=== PATIENT | male | born 1955 | race African-American/Black ===

== ENCOUNTER 2024-04-06 09:24 | Inpatient (IN) | payer OTHER, BC ==
[2024-04-06] MEDS ORDERED: ACETAMINOPHEN 325 MG TABLET ONE (10:01)
[2024-04-06 10:47] LABS: Absolute Lymphocytes (CBC) 0.4 K/uL (0.7-4.9); Absolute Monocytes 1.6 K/uL (0.1-1.3); Absolute Neutrophil 0.3 K/uL (1.8-8.0); Basophils % 1.8 % (0-1.3); Eosinophils % 0.4 % (0-4.4); Hematocrit 36.4 % (39.6-49.0); Lymphocytes % 18.1 % (15.3-44.8); MCH 31.1 pg (27.0-35.0); MCHC 32.9 g/dL (32.0-36.0); MCV 94.5 fL (80-100); MPV 8.1 fL (7.6-11.3); Monocytes % 66.4 % (3.3-12.3); Neutrophils % 13.3 % (41.7-73.7); Nucleated RBC Absolute Count 0.1 (0-0); Platelets 241 thou/uL (152-406); RBC Red Blood Cell Count 3.86 M/uL (4.33-5.43); Red Cell Distribution Width 18.8 % (12.1-15.2)
[2024-04-06 10:53] LABS: PT Prothrombin Time 23.4 SECONDS (9.4-12.5); PTT, Activated Partial Thromb 33.1 SECONDS (24.3-36.9); Protime INR 2.14
[2024-04-06 11:05] LABS: Specific Gravity 1.007 (1.005-1.030); Sqamous Epithelial None Seen /HPF (None Seen); Urine Bacteria None Seen /HPF (<20); Urine Bilirubin NEGATIVE (Negative); Urine Blood Negative (Negative); Urine Clarity Clear (Clear); Urine Color Colorless (Yellow); Urine Culture Reflex Order NOT NEEDED; Urine Glucose NEGATIVE (Negative); Urine Ketones NEGATIVE (Negative); Urine Microscopic Reflex YN ORDER UMIC; Urine Nitrite NEGATIVE (Negative); Urine Protein NEGATIVE (Negative); Urine RBC <5 /HPF (None Seen); Urine Urobilinogen Normal (Normal); Urine WBC <5 /HPF (<5)
[2024-04-06 11:07] LABS: AST/SGOT 16 U/L (15-37); Albumin 2.5 g/dL (3.4-5.0); Albumin/Globulin Ratio 0.5 (1.1-1.8); Alkaline Phosphatase 97 U/L (45-117); Anion Gap 8.8 mEq/L (5.0-15.0); BUN Blood Urea Nitrogen 12 mg/dL (7-18); Bicarbonate 28 mEq/L (21-32); Bilirubin Total 0.7 mg/dL (0.2-1.0); Globulin 5.4 g/dL (2.3-3.5); Glomerular Filtration Rate 75 ml/min (=/>90); Glucose Level 112 mg/dL (74-106); Potassium 3.8 mEq/L (3.5-5.1); Protein, Total 7.9 g/dL (6.4-8.2); Sodium Level 138 mEq/L (136-145)
[2024-04-06 11:08] LABS: ALT/SGPT < 14 U/L (16-61)
[2024-04-06 11:11] LABS: SARS-CoV-2 Antigen CONTROL BLUE LINE VIS/BG OK; SARS-CoV-2 Antigen Rapid Res Negative (Negative)
[2024-04-06] MEDS ORDERED: NA CHLORIDE 0.9% 500 ML ONE (11:16)
--- NOTE | 2024-04-06 11:27 | RAD REPORT ---
Procedure: Chest Single View HISTORY: Chest pain COMPARISON: October 2023 FINDINGS: 3.7 cm right lung nodule has increased in size. Development of linear interstitial opacities within the lung bases. COPD. Heart is mildly enlarged. Central venous catheter in place. No significant pleural effusion noted. The heart is normal size. IMPRESSION: Enlargement of a 3.7 cm right lung nodule Development of mild to moderate linear opacities within the lung bases probably areas of subsegmental atelectasis. Pneumonitis, atypical pneumonia or other considerations.
[2024-04-06] MEDS ORDERED: AZITHROMYCIN 500 MG INJ IVPB ONE (11:47)
[2024-04-06] MEDS ORDERED: NA CHLORIDE 0.9% 250 ML ONE (11:47)
[2024-04-06] MEDS ORDERED: CEFTRIAXONE 1000 MG/VIAL ONE (11:47)
--- NOTE | 2024-04-06 12:31 | ER ---
Nurse's Notes [facility] Name: Garland Mai Age: 69 yrs Sex: Male : 1955 Arrival Date: 04/06/2024 Time: 09:24 Bed 7 Private MD: Diagnosis: Fever, unspecified;Pneumonia, unspecified organism Presentation: 04/06 09:49 Chief complaint: Patient states: he was at the cancer center for his chemo treatment kc6 and they sent him here for a fever of 101. temp is 99.4 in triage. Coronavirus screen: At this time, the client does not indicate any symptoms associated with coronavirus-19. Ebola Screen: No symptoms or risks identified at this time. Initial Sepsis Screen: Does the patient meet any 2 criteria? HR > 90 bpm. Does the patient have a suspected source of infection? No. Patient's initial sepsis screen is negative. Risk Assessment: Do you want to hurt yourself or someone else? Patient reports no desire to harm self or others. Onset of symptoms was April 06, 2024. 09:49 Method Of Arrival: Wheelchair kc6 09:49 Acuity: RESHMA 3 kc6 Triage Assessment: 09:51 General: Appears in no apparent distress. comfortable, well groomed, well developed, kc6 Behavior is calm, cooperative, appropriate for age, Reports chills for 12-24 hours, fever for 12-24 hours, feeling ill for 12-24 hours, fatigue for 12-24 hours. Pain: Denies pain. EENT: Reports nasal congestion pain when swallowing. Neuro: Level of Consciousness is awake, alert, obeys commands, Oriented to person, place, time, situation, Appropriate for age. Cardiovascular: Capillary refill < 3 seconds. Respiratory: Reports cough that is productive, Airway is patent Trachea midline Respiratory effort is even, unlabored, Respiratory pattern is regular, symmetrical. GI: Abdomen is flat, non-distended, Patient currently denies abdominal pain, diarrhea, nausea, vomiting. : No signs and/or symptoms were reported regarding the genitourinary system. Derm: No signs and/or symptoms reported regarding the dermatologic system. Skin is intact, is healthy with good turgor, Skin is pink, warm \T\ dry. Musculoskeletal: No signs and/or symptoms reported regarding the musculoskeletal system. Circulation, motion, and sensation intact. Capillary refill < 3 seconds, Range of motion: intact in all extremities. Historical: - Allergies: 09:45 Hydrocodone-Acetaminophen; ll1 - PMHx: 09:51 Congestive heart failure; esopaheal cancer; blood clots; kc6 - PSHx: 09:51 None; kc6 - Immunization history:: Adult Immunizations up to date. - Infectious Disease History:: Denies. - Social history:: Smoking status: Patient denies any tobacco usage or history of. - Family history:: not pertinent. - Hospitalizations: : No recent hospitalization is reported. Screenin:53 [facility] ED Fall Risk Assessment (Adult) History of falling in the last 3 months, kc6 including since admission No falls in past 3 months (0 pts) Confusion or Disorientation No (0 pts) Intoxicated or Sedated No (0 pts) Impaired Gait No (0 pts) Mobility Assist Device Used Yes (1 pt) Altered Elimination No (0 pt) Score/Fall Risk Level 0 - 2 = Low Risk Oriented to surroundings. Abuse screen: Denies threats or abuse. Denies injuries from another. Nutritional screening: No deficits noted. Tuberculosis screening: No symptoms or risk factors identified. Assessment: 09:54 Reassessment: please see triage. kc6 10:54 Reassessment: Patient appears in no apparent distress at this time. No changes from kc6 previously documented assessment. Patient and/or family updated on plan of care and expected duration. Pain level reassessed. Patient is alert, oriented x 3, equal unlabored respirations, skin warm/dry/pink. 11:54 Reassessment: Patient appears in no apparent distress at this time. No changes from kc6 previously documented assessment. Patient and/or family updated on plan of care and expected duration. Pain level reassessed. Patient is alert, oriented x 3, equal unlabored respirations, skin warm/dry/pink. 12:54 Reassessment: Patient appears in no apparent distress at this time. No changes from kc6 previously documented assessment. Patient and/or family updated on plan of care and expected duration. Pain level reassessed. Patient is alert, oriented x 3, equal unlabored respirations, skin warm/dry/pink. 13:25 Reassessment: Patient appears in no apparent distress at this time. No changes from kc6 previously documented assessment. Patient and/or family updated on plan of care and expected duration. Pain level reassessed. Patient is alert, oriented x 3, equal unlabored respirations, skin warm/dry/pink. Vital Signs: 09:49 BP 110 / 70; Pulse 102; Resp 19 S; Temp 99.4(O); Pulse Ox 95% on R/A; Weight 47.63 kg kc6 (R); Height 5 ft. 11 in. (R); Pain 0/10; 10:42 BP 99 / 67; Pulse 96; Resp 16 S; Pulse Ox 96% on R/A; kc6 11:19 Temp 99.7(O); kc6 11:41 BP 90 / 62; Pulse 82; Resp 18 S; Pulse Ox 93% on R/A; kc6 12:21 BP 96 / 59; Pulse 84; Resp 17 S; Pulse Ox 96% on R/A; kc6 13:25 BP 90 / 64; Pulse 88; Resp 16 S; Pulse Ox 98% on R/A; kc6 09:49 Body Mass Index 14.64 (47.63 kg, 180.34 cm) kc6 09:49 Pain Scale: Adult kc6 ED Course: 09:27 Patient arrived in ED. mg5 09:36 Se Avila MD is Attending Physician. rn 09:41 Arm band placed on Patient placed in an exam room, on a stretcher. ll1 09:49 Catrina Alex, INDY is Primary Nurse. kc6 09:51 Triage completed. kc6 09:53 Patient has correct armband on for positive identification. Bed in low position. Call kc6 light in reach. Side rails up X 1. Adult w/ patient. Pulse ox on. NIBP on. Door closed. Noise minimized. Lights dimmed. Warm blanket given. Pillow given. 09:53 Patient maintains SpO2 saturation greater than 95% on room air. kc6 10:21 Missed attempt(s): 20 gauge in right forearm. kc6 10:38 Chest Single View XRAY In Process Unspecified. EDMS 10:42 Inserted saline lock: 22 gauge in right forearm, using aseptic technique. Blood kc6 collected. Flushed with 10 mL NS. 10:44 Diet: Patient given water. Tolerated well. kc6 10:53 Urinalysis w/ reflexes Sent. kc6 12:30 Shaka Irwin is Hospitalizing Provider. rn 13:24 [id number] CM met with and his sister Allison at the bedside in the ED exam room. ane Patient identified by name and . Demographic sheet confirmed. Patient reports that prior to admission, he typically performs ADLs independently. Approximately a week prior to admission, he had increased weakness and was using a wheelchair. No other DME in the home, no home oxygen. Patient reports he has HH services but is not sure of the name of the company. He states the HH services was set up by [facility] when he was receiving radiation treatment, and is nearly done with chemotherapy, with only two more remaining treatments. HH service reports to patient's home 3 times a week. His PCP is Dr. Sudhir Rice and he states he does not have an MPOA in place at this time. His plan is to return home upon discharge, complete chemotherapy and Allison states she will be his transportation home. CM team will continue to follow and coordinate care during this hospital stay. 14:18 No provider procedures requiring assistance completed. Patient admitted, IV remains in kc6 place. Administered Medications: 10:21 Drug: Acetaminophen PO 650 mg PO once Route: PO; kc6 11:18 Follow up: Response: No adverse reaction; Temperature is unchanged kc6 11:18 Drug: NS 0.9% IV 500 ml 500 ml IV at 1 bolus once; to be given as a bolus over 30 kc6 minutes Volume: 500 ml; Route: IV; Rate: 1 bolus; Site: right forearm; 11:56 Follow up: Response: No adverse reaction; IV Status: Completed infusion; IV Intake: kc6 500ml 11:56 Drug: Rocephin IV 1 grams IV at calculated rate once; Given slow IV push per pharmacy kc6 instructions Route: IV; Rate: calculated rate; Site: right forearm; 12:21 Follow up: Response: No adverse reaction; IV Status: Completed infusion; IV Intake: [id number] 11:57 Drug: Zithromax IVPB 500 mg IVPB once over 1 hrs; mix in 250 mL NS Route: IVPB; Infused kc6 Over: 1 hrs; Site: right forearm; 13:26 Follow up: Response: No adverse reaction; IV Status: Completed infusion; IV Intake: kc6 250ml Medication: 14:18 VIS not applicable for this client. kc6 Intake: 11:56 IV: 500ml; Total: 500ml. kc6 12:21 IV: 10ml; Total: 510ml. kc6 13:26 IV: 250ml; Total: 760ml. kc6 Outcome: 12:30 Decision to Hospitalize by Provider. rn 14:18 Admitted to Med/surg accompanied by tech, via wheelchair, room 402, with chart, kc6 14:18 Condition: good 14:18 Instructed on the need for admit, 14:18 Patient left the ED. kc6 Signatures: Dispatcher [employer] EDMS Se Avila MD MD rn Lewis, Lynsay RN RN ll1 Catrina Alex RN RN [id number] Helena Heller mg5 Smita Juan RN RN more
--- NOTE | 2024-04-06 12:32 | EDPHYS ---
Physician Documentation [facility] Name: Garland Mai Age: 69 yrs Sex: Male : 1955 Arrival Date: 04/06/2024 Time: 09:24 Bed 7 Private MD: ED Physician Se Avila HPI: 04/06 10:05 This 69 yrs old Black Male presents to ER via Wheelchair with complaints of Fever. rn 10:06 The patient reports fever, that was measured at 101 degrees Fahrenheit. Onset: The rn symptoms/episode began/occurred today. Associated signs and symptoms: Pertinent positives: chills, cough, runny nose. Severity of symptoms: At their worst the symptoms were mild in the emergency department the symptoms are unchanged. The patient has been recently seen by a physician:. Patient went to oncology today, was supposed to get his chemo, was febrile so sent here for evaluation. Patient reports a few days of cough/congestion/malaise. Fever did not start until today. Denies shortness of breath. No abdominal pain or vomiting. No urinary symptoms. Compliant with his Eliquis. Historical: - Allergies: 09:45 Hydrocodone-Acetaminophen; ll1 - PMHx: 09:51 Congestive heart failure; esopaheal cancer; blood clots; kc6 - PSHx: 09:51 None; kc6 - Immunization history:: Adult Immunizations up to date. - Infectious Disease History:: Denies. - Social history:: Smoking status: Patient denies any tobacco usage or history of. - Family history:: not pertinent. - Hospitalizations: : No recent hospitalization is reported. ROS: 10:06 Constitutional: Positive for fever and chills Eyes: Negative for injury, pain, redness, rn and discharge, ENT: Positive for congestion Neck: Negative for injury, pain, and swelling, Cardiovascular: Negative for chest pain, palpitations, and edema, Respiratory: Positive for cough, negative for shortness of breath, negative for hemoptysis Abdomen/GI: Negative for abdominal pain, nausea, vomiting, diarrhea, and constipation, Back: Negative for injury and pain, : Negative for injury, bleeding, discharge, and swelling, MS/Extremity: Negative for injury and deformity, Skin: Negative for injury, rash, and discoloration, Neuro: Positive for generalized weakness and malaise. No headache or seizure Exam: 10:06 Constitutional: Cachectic, no acute distress Head/Face: Normocephalic, atraumatic. rn Eyes: Pupils equal round and reactive to light, extra-ocular motions intact. ENT: Mild pharyngeal erythema, no stridor Neck: No meningismus Cardiovascular: Tachycardic, regular. No pulse deficits. Respiratory: Mild tachypnea, no retractions Abdomen/GI: Soft, nontender, nondistended MS/ Extremity: Pulses equal, no cyanosis. Neurovascular intact. Full, normal range of motion. Equal circumference. Neuro: Awake and alert, GCS 15 Vital Signs: 09:49 BP 110 / 70; Pulse 102; Resp 19 S; Temp 99.4(O); Pulse Ox 95% on R/A; Weight 47.63 kg kc6 (R); Height 5 ft. 11 in. (R); Pain 0/10; 10:42 BP 99 / 67; Pulse 96; Resp 16 S; Pulse Ox 96% on R/A; kc6 11:19 Temp 99.7(O); kc6 11:41 BP 90 / 62; Pulse 82; Resp 18 S; Pulse Ox 93% on R/A; kc6 12:21 BP 96 / 59; Pulse 84; Resp 17 S; Pulse Ox 96% on R/A; kc6 13:25 BP 90 / 64; Pulse 88; Resp 16 S; Pulse Ox 98% on R/A; kc6 09:49 Body Mass Index 14.64 (47.63 kg, 180.34 cm) kc6 09:49 Pain Scale: Adult kc6 MDM: 09:36 Medical Screening Exam initiated rn 11:11 ED course: Lactate greater than 4, still no source of infection identified. Patient rn with congestive heart failure, will give approximately 10 mL/kg bolus and reevaluate as patient has high likelihood of volume overload. If patient needs further fluids will administer as needed.. 12:28 Differential diagnosis: viral Infection, bacterial infection, URI, bronchitis, rn pneumonia UTI. Data reviewed: vital signs, nurses notes, lab test result(s), radiologic studies, plain films, and as a result, I will admit patient. Consideration of Admission/Observation Patient was admitted/placed on observation. Escalation of care including admission/observation considered. Care significantly affected by the following chronic conditions: Congestive Heart Failure, Cancer. Counseling: I had a detailed discussion with the patient and/or guardian regarding the historical points, exam findings, and any diagnostic results supporting the discharge/admit diagnosis, lab results, radiology results, the need for further work-up and treatment in the hospital, Sepsis reevaluation complete.. 17:24 ED course: Repeat lactic acid improved with fluids given. Again was limited due to rn congestive heart failure and concern for volume overload.. 04/06 10:01 Order name: Blood Culture Adult (2) rn 04/06 10:01 Order name: CBC with Diff; Complete Time: 17:24 rn 04/06 10:01 Order name: CMP; Complete Time: 11:10 rn 04/06 10:01 Order name: Lactate w/ 2H reflex if indic.; Complete Time: 11:10 rn 04/06 10:01 Order name: Protime (+inr); Complete Time: 11:10 rn 04/06 10:01 Order name: Ptt, Activated; Complete Time: 11:10 rn 04/06 10:01 Order name: Urinalysis w/ reflexes; Complete Time: 11:10 rn 04/06 10:01 Order name: Flu; Complete Time: 12:00 rn 04/06 10:01 Order name: SARS RAPID; Complete Time: 12:00 rn 04/06 13:04 Order name: Manual Differential; Complete Time: 17:24 EDAL 04/06 13:10 Order name: T4 Free EDMS 04/06 13:10 Order name: Thyroid Stimulating Hormone EDMS 04/06 13:10 Order name: Basic Metabolic Panel EDMS 04/06 13:10 Order name: Basic Metabolic Panel EDMS 04/06 13:10 Order name: Basic Metabolic Panel EDMS 04/06 13:10 Order name: Basic Metabolic Panel EDMS 04/06 13:10 Order name: Basic Metabolic Panel EDMS 04/06 13:10 Order name: Basic Metabolic Panel EDMS 04/06 13:10 Order name: Basic Metabolic Panel EDMS 04/06 13:10 Order name: Basic Metabolic Panel EDMS 04/06 13:10 Order name: CBC with Automated Diff EDMS 04/06 13:10 Order name: CBC with Automated Diff EDMS 04/06 13:10 Order name: CBC with Automated Diff EDMS 04/06 13:10 Order name: CBC with Automated Diff EDMS 04/06 13:10 Order name: CBC with Automated Diff EDMS 04/06 13:10 Order name: CBC with Automated Diff EDMS 04/06 13:10 Order name: CBC with Automated Diff EDMS 04/06 13:10 Order name: CBC with Automated Diff EDMS 04/06 13:10 Order name: Magnesium EDMS 04/06 13:10 Order name: Magnesium EDMS 04/06 13:10 Order name: Magnesium EDMS 04/06 13:10 Order name: Magnesium EDMS 04/06 13:10 Order name: Magnesium EDMS 04/06 13:10 Order name: Magnesium EDMS 04/06 13:10 Order name: Magnesium EDMS 04/06 13:10 Order name: Magnesium EDMS 04/06 13:10 Order name: Phosphorus EDMS 04/06 13:10 Order name: Phosphorus EDMS 04/06 13:10 Order name: Phosphorus EDMS 04/06 13:10 Order name: Phosphorus EDMS 04/06 13:10 Order name: Phosphorus EDMS 04/06 13:10 Order name: Phosphorus EDMS 04/06 13:10 Order name: Phosphorus EDMS 04/06 13:10 Order name: Phosphorus EDMS 04/06 13:10 Order name: Ghost Lactate-NO COLLECT Timer; Complete Time: 17:24 EDMS 04/06 14:13 Order name: Lactate Sepsis 2 HR Follow-up; Complete Time: 17:24 EDMS 04/06 10:01 Order name: Chest Single View XRAY; Complete Time: 12:00 rn 04/06 13:10 Order name: CONS Physician Consult EDMS 04/06 10:01 Order name: Accucheck; Complete Time: 10:41 rn 04/06 10:01 Order name: Cardiac monitoring; Complete Time: 10:21 rn 04/06 10:01 Order name: EKG - Nurse/Tech; Complete Time: 10:21 rn 04/06 10:01 Order name: IV Saline Lock - Large Bore; Complete Time: 10:41 rn 04/06 10:01 Order name: Labs collected and sent; Complete Time: 10:41 rn 04/06 10:01 Order name: O2 Per Protocol; Complete Time: 10:01 rn 04/06 10:01 Order name: O2 Sat Monitoring; Complete Time: 10: rn 04/06 10:01 Order name: Vital Signs; Complete Time: 10:01 rn Administered Medications: 10:21 Drug: Acetaminophen PO 650 mg PO once Route: PO; kc6 11:18 Follow up: Response: No adverse reaction; Temperature is unchanged kc6 11:18 Drug: NS 0.9% IV 500 ml 500 ml IV at 1 bolus once; to be given as a bolus over 30 kc6 minutes Volume: 500 ml; Route: IV; Rate: 1 bolus; Site: right forearm; 11:56 Follow up: Response: No adverse reaction; IV Status: Completed infusion; IV Intake: kc6 500ml 11:56 Drug: Rocephin IV 1 grams IV at calculated rate once; Given slow IV push per pharmacy kc6 instructions Route: IV; Rate: calculated rate; Site: right forearm; 12:21 Follow up: Response: No adverse reaction; IV Status: Completed infusion; IV Intake: [id number] 11:57 Drug: Zithromax IVPB 500 mg IVPB once over 1 hrs; mix in 250 mL NS Route: IVPB; Infused kc6 Over: 1 hrs; Site: right forearm; 13:26 Follow up: Response: No adverse reaction; IV Status: Completed infusion; IV Intake: kc6 250ml Disposition Summary: 04/06/24 12:30 Hospitalization Ordered Notes: Hospitalization Status: Inpatient Admission rn Provider: Shaka Irwin rn [facility] rn Condition: Stable rn Problem: new rn Symptoms: have improved rn Bed/Room Type: Standard rn Room Assignment: 402(04/06/24 13:19) ss Diagnosis - Fever, unspecified rn - Pneumonia, unspecified organism rn Forms: - Medication Reconciliation Form rn - SBAR form rn - Leadership Thank You Letter rn Signatures: Dispatcher [employer] EDMS Se Avila MD MD rn Blanchard, Shelby, RN RN ss Nirmal Bose RN RN ll1 Catrina Alex RN RN kc6 Corrections: (The following items were deleted from the chart) 10:01 10:01 BLOOD CULTURE*+BA.LAB.BRZ ordered. EDMS EDMS 10:01 10:01 CBC+H.LAB.BRZ ordered. EDMS EDMS 10:01 10:01 COMPREHENSIVE METABOLIC PANEL+C.LAB.BRZ ordered. EDMS EDMS 10:01 10:01 LACTATE+C.LAB.BRZ ordered. EDMS EDMS 10:01 10:01 PROTIME (+INR)+COAG.LAB.BRZ ordered. EDMS EDMS 10:01 10:01 PTT, ACTIVATED+COAG.LAB.BRZ ordered. EDMS EDMS 10:01 10:01 Urinalysis+U.LAB.BRZ ordered. EDMS EDMS 10:01 10:01 Influenza Screen (A \T\ B)+BA.LAB.BRZ ordered. EDMS EDMS 10:01 10:01 SARS-COV-2 Antigen Rapid+I.LAB.BRZ ordered. EDMS EDMS 10:01 10:01 Chest Single View+RAD.RAD.BRZ ordered. EDAL EDMS 13:19 12:30 rn ss 17:25 12:28 Counseling: I had a detailed discussion with the patient and/or guardian rn regarding the historical points, exam findings, and any diagnostic results supporting the discharge/admit diagnosis, lab results, radiology results, the need for further work-up and treatment in the hospital, rn
[2024-04-06 13:03] LABS: Band Neutrophils 2 % (0-1); Differential Total Cells Count 100; Lymphocytes 34 % (15-42); Monocytes 49 % (0-10); Segmented Neutrophils 10 % (40-80)
[2024-04-06 13:04] LABS: Anisocytosis 1+; Atypical Lymphocytes 2 %; Blood Morphology Comment NOTED (NOT SEEN); Platelet Estimate ADEQ; Target Cells 1+
[2024-04-06 13:05] LABS: Nucleated Red Blood Cells 1 /100WBC
--- NOTE | 2024-04-06 13:13 | P.HP ---
Certification for Inpatient Patient admitted to: Inpatient With expected LOS: >2 Midnights Patient will require the following post-hospital care: None Practitioner: I am a practitioner with admitting privileges, knowledge of patient current condition, hospital course, and medical plan of care. Services: Services provided to patient in accordance with Admission requirements found in Title 42 Section 412.3 of the Code of Federal Regulations Patient History Date of Service: 04/06/24 Reason for admission: sepsis 2/2 pna History of Present Illness: Garland Mai is a 69 year old male with PMHX CHF, esophageal cancer (radiation/chemo), and anxiety who presents to the ED with chief complaint of fever at the clinic for chemotherapy. He reports starting a new medication for sleep and anxiety at which time it caused him to sleep for several days in a row. Evaluated in the ED with chest xray showing a right lung nodule and atypical pneumonia. Laboratory evaluation significant for lactic acid 4.3/3.3, WBC 2.4, UA negative for infectious process Chest xray reports "Enlargement of a 3.7 cm right lung nodule Development of mild to moderate linear opacities within the lung bases probably areas of subsegmental atelectasis. Pneumonitis, atypical pneumonia or other considerations." Garland will be admitted to hospitalist service for further evaluation and treatment of sepsis 2/2 PNA. Allergies hydrocodone Allergy (Intermediate, Verified 10/23/23 06:54) Rash Home Medications: Docusate Liq [Colace Liquid*] 50 mg PO BID PRN 10/22/23 Ondansetron [Ondansetron Odt] 8 mg PO Q8HR PRN 10/22/23 Polyethylene Glycol 3350 [Miralax] 17 gm PO DAILY 10/22/23 Apixaban [Eliquis] 5 tab PO BID 04/06/24 Cetirizine HCl [Zyrtec] 10 mg PO DAILY PRN 04/06/24 Furosemide 20 mg PO DAILY 04/06/24 Trazodone [Desyrel*] 50 mg PO BEDTIME 04/06/24 Vit C/E/Zn/Coppr/Lutein/Zeaxan [Preservision Areds 2 Chew Tab] 1 each PO DAILY 04/06/24 Zolpidem Tartrate 5 mg PO 30 MIN BEFORE HS 04/06/24 dexAMETHasone [Dexamethasone] 4 mg PO SEECOM 04/06/24 - Past Medical/Surgical History -: Esophageal cancer -: anxiety -: CHF - Family History Family History: Reviewed- Non-Contributory - Social History Smoking Status: Current every day smoker (a few puffs daily) Alcohol use: No CD- Drugs: No Review of Systems General: Fever, Chills, Weakness, Malaise Respiratory: Cough Physical Examination - Physical Exam General: Alert, In no apparent distress, Oriented x3 HEENT: Atraumatic, Normocephalic, PERRLA Neck: Supple, 2+ carotid pulse no bruit Respiratory: Clear to auscultation bilaterally, Normal air movement, Expiratory wheezes Cardiovascular: No edema, Normal pulses, Regular rate/rhythm, Normal S1 S2 Capillary refill: <2 Seconds Gastrointestinal: Normal bowel sounds, Soft and benign Musculoskeletal: No clubbing Integumentary: No rashes Neurological: Normal speech, Normal tone - Studies Laboratory Data (last 24 hrs) 04/06/24 04/06/24 04/06/24 10:30 10:30 10:30 WBC 2.40 L Hgb 12.0 L Hct 36.4 L Plt Count 241 PT 23.4 H INR 2.14 APTT 33.1 Sodium 138 Potassium 3.8 BUN 12 Creatinine 1.08 Glucose 112 H Total Bilirubin 0.7 AST 16 ALT < 14 L Alkaline Phosphatase 97 Microbiology Data (last 24 hrs): 04/06/24 10:30 Nasopharnyx Influenza Type A Antigen Screen - Final 04/06/24 10:30 Nasopharnyx Influenza Type B Antigen Screen - Final Assessment and Plan - Plan Assessment and plan Sepsis 2/2 Acute Pneumonia with neutropenia Neutropenic fever 3.7 cm right lung nodule Weakness and lethargy Lactic acidosis -lactic acidosis 4.3/3.3, reported fever 101, WBC 2.4 -Rocephin and azithromycin given in the ED -Levaquin given on the floor -Gentle IV fluids -Follow blood cultures -Dr. Raymond consulted Hx PE -continue Eliquis -Supportive care -currently on Room air Esophageal cancer Neutropenia -Absolute neutrophils 0.3 -Neutropenic precautions -Continue outpatient management -DIRECTOR OF REGIONAL SALES consulted Congestive heart failure -Gentle IV fluids -Continue home medications DVT ppx Eliquis Full code LOS 2-3 days Discharge Plan: Home Plan to discharge in: 48 Hours - Advance Directives Does patient have a Living Will: No Does patient have a Durable POA for Healthcare: No
[2024-04-06] MEDS: Levofloxacin 750mg IV 750 MG/150 ML BAG IV SCH (15:35)
[2024-04-06] MEDS: NA CHLORIDE 0.9% 1,000 ML IV SCH (15:36)
[2024-04-06] MEDS ORDERED: DOCUSATE NA 50 MG/5 ML UCUP PO PRN (16:41)
[2024-04-06] MEDS ORDERED: CETIRIZINE HCL 5 MG TABLET PO PRN (17:05)
[2024-04-06] MEDS ORDERED: ONDANSETRON 4 MG (ODT) TAB PO PRN (17:07)
[2024-04-06] MEDS: NA CHLORIDE 0.9% 500 ML IV SCH (18:11)
[2024-04-06] MEDS: VANCOMYCIN 1 GM in NA CHLORIDE 0.9% 250 ML IVPB SCH (18:47)
[2024-04-06] MEDS: ZOLPIDEM TARTRATE 5 MG TABLET PO SCH (20:30)
[2024-04-06] MEDS: APIXABAN 5 MG TABLET PO SCH (20:46)
[2024-04-06] MEDS: ACETAMINOPHEN 325 MG TABLET PO PRN (20:50)
[2024-04-06] MEDS: TRAZODONE 50 MG TABLET PO SCH (21:00)
[2024-04-07 07:30] LABS: Absolute Basophils 0.1 K/uL (0-0.5); Absolute Eosinophils 0.2 K/uL (0-0.5); Absolute Lymphocytes (CBC) 0.7 K/uL (0.7-4.9); Absolute Monocytes 2.5 K/uL (0.1-1.3); Absolute Neutrophil 1.6 K/uL (1.8-8.0); Eosinophils % 3.6 % (0-4.4); Hematocrit 31.6 % (39.6-49.0); Hemoglobin 10.2 g/dL (13.6-17.9); Lymphocytes % 13.1 % (15.3-44.8); MCH 30.6 pg (27.0-35.0); MCHC 32.3 g/dL (32.0-36.0); MCV 94.7 fL (80-100); MPV 8.4 fL (7.6-11.3); Monocytes % 50.5 % (3.3-12.3); Neutrophils % 31.8 % (41.7-73.7); Nucleated RBC Absolute Count 0.1 (0-0); Platelets 252 thou/uL (152-406); RBC Red Blood Cell Count 3.33 M/uL (4.33-5.43); Red Cell Distribution Width 18.5 % (12.1-15.2)
[2024-04-07 07:49] LABS: Anion Gap 6.3 mEq/L (5.0-15.0); Magnesium 1.8 mg/dL (1.6-2.4); Phosphorus 1.7 mg/dL (2.5-4.9); Potassium 3.3 mEq/L (3.5-5.1); Thyroid Stimulating Hormone 0.903 uIU/mL (0.358-3.740)
[2024-04-07] MEDS: POLYETHYL GLY 3350 17 GM/DOSE PO SCH (08:30)
[2024-04-07] MEDS: NA CHLORIDE 0.9% 1,000 ML IV SCH (08:30)
[2024-04-07] MEDS ORDERED: FUROSEMIDE 20 MG TABLET PO SCH (09:00)
[2024-04-07] MEDS: MAGNESIUM SULFATE 1 gm IVPB 1 GM/100 ML BAG IV SCH (11:02)
[2024-04-07] MEDS: POTASSIUM PHOS IN 0.9 % NACL 15 MMOL/250 ML BAG IV SCH (11:03)
--- NOTE | 2024-04-07 11:10 | EKG ---
Test Date: 2024-04-06 Test Time: 10:14:22 Clinical Specialist Vascular: DANIELA MEASUREMENT RESULTS: Intervals: Rate: 97 WY: 150 QRSD: 76 QT: 338 QTc: 429 [place]: P: 96 WY: 150 QRS: 87 T: 102 INTERPRETIVE STATEMENTS: Normal sinus rhythm Left ventricular hypertrophy with repolarization abnormality Abnormal ECG Compared to ECG 10/22/2023 12:34:44 Left ventricular hypertrophy now present ST (T wave) deviation no longer present Electronically Signed On 04-07-24 11:07:57 CDT by Elliott Kwan
--- NOTE | 2024-04-07 12:24 | P.CNS ---
Date of Consult: 04/07/24 Reason for Consult: Right sided lung mass Chief Complaint: Right lung mass History of Present Illness: Patient is 69 years of age with a history of esophageal cancer currently receiving chemotherapy he was on chemotherapy #11 for esophageal cancer with low-grade fever found to have a right sided lung mass denies any cough or congestion Allergies hydrocodone Allergy (Intermediate, Verified 10/23/23 06:54) Rash Home Medications: Docusate Liq [Colace Liquid*] 50 mg PO BID PRN 10/22/23 Ondansetron [Ondansetron Odt] 8 mg PO Q8HR PRN 10/22/23 Polyethylene Glycol 3350 [Miralax] 17 gm PO DAILY 10/22/23 Apixaban [Eliquis] 5 tab PO BID 04/06/24 Cetirizine HCl [Zyrtec] 10 mg PO DAILY PRN 04/06/24 Furosemide 20 mg PO DAILY 04/06/24 Trazodone [Desyrel*] 50 mg PO BEDTIME 04/06/24 Vit C/E/Zn/Coppr/Lutein/Zeaxan [Preservision Areds 2 Chew Tab] 1 each PO DAILY 04/06/24 Zolpidem Tartrate 5 mg PO 30 MIN BEFORE HS 04/06/24 dexAMETHasone [Dexamethasone] 4 mg PO SEECOM 04/06/24 - Past Medical/Surgical History Diabetic: No -: Esophageal cancer -: anxiety -: CHF -: Pulmonary emboli - Social History Alcohol use: No CD- Drugs: No Caffeine use: Yes Place of Residence: Home Review of Systems 10-point ROS is otherwise unremarkable General: Weakness Physical Examination Temp Pulse Resp BP Pulse Ox 97.8 F 68 18 97/53 L 98 04/07/24 08:00 04/07/24 08:00 04/07/24 08:00 04/07/24 08:00 04/07/24 08:00 General: Alert, Oriented x3 HEENT: Atraumatic Neck: Supple Respiratory: Clear to auscultation bilaterally Cardiovascular: No edema, Regular rate/rhythm Gastrointestinal: Normal bowel sounds, Soft and benign Laboratory Data (last 24 hrs) 04/06/24 10:30 WBC 2.40 L Hgb 12.0 L Hct 36.4 L Plt Count 241 - Problems (1) Abnormal chest x-ray Current Visit: Yes Status: Acute Plan: Patient is 69 years of age with a history of esophageal cancer receiving chemotherapy admitted with fever progressive increasing right sided lung mass went from 2.4 cm to 3.7 mass was present in December 2023 CT scan patient is mildly anemic elevated lactic acid oxygenation satisfactory so far blood cultures are negative ordered a CT scan of the chest will need an outpatient biopsy patient is on Eliquis patient can probably be discharged home there is no evidence of sepsis follow-up in my clinic next week change for outpatient biopsy discussed with Dr. Matamoros is likely a primary lung cancer
--- NOTE | 2024-04-07 13:57 | P.PN ---
Date of Service: 04/07/24 Subjective Awake reading the news paper Dr. Raymond consulted WASH HELPER to evaluate for dysphagia ROS 10 point ROS as noted above, otherwise negative Physical Exam General: Alert and Oriented x3, NAD HEENT: Atraumatic, Normocephalic, PERRLA Neck: Supple, 2+ carotid pulse no bruit Respiratory: Clear to auscultation bilaterally, Normal air movement, Expiratory wheezes Cardiovascular: , Normal pulses, RRR, Normal S1 S2 Capillary refill: <2 Seconds Gastrointestinal: Normal bowel sounds, Soft and benign on palpation Musculoskeletal: No clubbing, No edema Integumentary: No rashes Neurological: Normal speech, Normal tone Vitals Reviewed Problem list Acute Pneumonia with neutropenia Neutropenic fever 3.7 cm right lung nodule Weakness and lethargy Lactic acidosis Hx PE Esophageal cancer Neutropenia Congestive heart failure Assessment and Plan Acute Pneumonia with neutropenia Neutropenic fever 3.7 cm right lung nodule Weakness and lethargy Lactic acidosis -Sepsis ruled out afebrile this admission -lactic acidosis 4.3/3.3, reported fever 101, WBC 2.4 -Rocephin and azithromycin given in the ED -Levaquin given on the floor -Gentle IV fluids -Follow blood cultures -Dr. Raymond consulted, OP biopsy of lung nodule -CT thorax pending Hx PE -continue Eliquis -Supportive care -currently on Room air Esophageal cancer Neutropenia -Absolute neutrophils 0.3, now 1.6 -Neutropenic precautions -Continue outpatient management -WASH HELPER consulted Congestive heart failure -Gentle IV fluids -Continue home medications DVT ppx Eliquis Full code LOS 2-3 days Discharge Plan: Home Plan to discharge in: 48 Hours <Edilma Armstrong - Last Filed: 04/07/24 14:04> Patient seen and examined. Plan of care discussed with Ms. Armstrong. Patient has no new complain. 24-hour blood cultures have yielded no growth. Continue current antibiotics. Planning to discharge patient once 48-hour blood cultures shows negative growth. <demetri webster - Last Filed: 04/07/24 18:27>
[2024-04-07] MEDS: ENSURE ENLIVE 237 ML CAN PO SCH (14:52)
--- NOTE | 2024-04-07 15:33 | RAD REPORT ---
EXAM:Thorax Wo Con CLINICAL INDICATION: Lung mass TECHNIQUE: CT chest performed.. Axial, sagittal and coronal reconstructions were obtained. One or mor e of the following dose reduction techniques were used: Automated exposure control, adjustment of the mA and/or kV according to the patient size, and/or iterative reconstruction. Unless otherwise specified, incidental findings do not require dedicated imaging follow-up. [id number]. COMPARISON: December 2023 FINDINGS: 4 x 2.5 cm right lower lobe mass has increased in size since the prior exam in which it measured 2.4 x 1.9 cm. Moderate patchy left lower lobe opacities have developed. Minimal right lower lobe interstitial opacities. Prominent paraseptal emphysema. No pleural effusion. No pericardial effusion IMPRESSION: 4 cm right lower lobe mass has enlarged compatible with neoplasm. Moderate patchy left lower lobe opacities. This may represent pneumonia or pneumonitis.
[2024-04-07 17:59] VITALS: BMI 15.0
[2024-04-08 06:27] LABS: Absolute Basophils 0.1 K/uL (0-0.5); Absolute Eosinophils 0.1 K/uL (0-0.5); Absolute Lymphocytes (CBC) 0.7 K/uL (0.7-4.9); Absolute Monocytes 3.6 K/uL (0.1-1.3); Basophils % 1.1 % (0-1.3); Hemoglobin 10.3 g/dL (13.6-17.9); Lymphocytes % 5.5 % (15.3-44.8); MCH 31.7 pg (27.0-35.0); MCHC 34.2 g/dL (32.0-36.0); MCV 92.8 fL (80-100); MPV 7.8 fL (7.6-11.3); Monocytes % 28.6 % (3.3-12.3); Neutrophils % 63.8 % (41.7-73.7); Nucleated Red Blood Cells % 0.2 % (0-0); Platelets 328 thou/uL (152-406); RBC Red Blood Cell Count 3.23 M/uL (4.33-5.43); Red Cell Distribution Width 18.7 % (12.1-15.2)
[2024-04-08 07:22] LABS: Magnesium 1.9 mg/dL (1.6-2.4)
[2024-04-08 07:25] LABS: Phosphorus 1.5 mg/dL (2.5-4.9)
[2024-04-08] MEDS: VANCOMYCIN 1.25 GM in NA CHLORIDE 0.9% 250 ML IVPB SCH (07:59)
[2024-04-08] MEDS: NA CHLORIDE 0.9% 250 ML IV ONE (08:50)
[2024-04-08] MEDS: POTASS/SODIUM PHOSPHATE 1 PKT POWD.PACK PO SCH (08:51)
--- NOTE | 2024-04-08 11:00 | P.PN ---
Subjective Date of Service: 04/08/24 Chief Complaint: Left lower lobe pneumonia right-sided lung mass Still feels weak denies any fever or chills has some chest discomfort scan reviewed Review of Systems Unremarkable General: Weakness Cardiovascular: Chest Pain Physical Examination - Vital Signs Temperature: 97.8 F Blood Pressure: 94/55 Pulse: 79 Respirations: 17 Pulse Ox (%): 97 - Physical Exam General: Alert, In no apparent distress, Oriented x3 Neck: Supple (Because in the left lower) Respiratory: Crackles/rales Cardiovascular: Normal pulses, Normal S1 S2 Assessment And Plan - Current Problems (Diagnosis) (1) Left lower lobe pneumonia Current Visit: Yes Status: Acute Plan: CT scan reviewed most likely symptoms are from acute left lower lobe pneumonia cultures are all negative phonation is satisfactory responding well to levofloxacin can go home on 750 mg daily for a week Qualifiers: Aspiration pneumonia type: unspecified (2) Right lower lobe lung mass Current Visit: Yes Status: Acute Plan: Patient has a right lower lobe lung mass that is progressively increased in size will be a minimal to fine-needle biopsy will arrange this as an outpatient most likely this is primary lung cancer form the patient will arrange this as an outpatient he will have to stop his Eliquis for 3 days
--- NOTE | 2024-04-08 11:31 | RAD REPORT ---
EXAMINATION: ONE VIEW CHEST XR CLINICAL INDICATION: Male, 69 years old.,left sided chest pain TECHNIQUE: Frontal chest projection is submitted. Examination is limited by patient positioning and t echnique. COMPARISON: 04/06/2024 FINDINGS: Right chest wall Port-A-Cath in place. Stable ovoid masslike 3.9 cm opacity in the right mid to lower lung. Mildly progressive patchy airspace opacities in the left lung base. Background hyperinflation. Stable blunting of the costophrenic angles bilaterally.. No pneumothorax or sizable effusion. The heart is normal in size. Mediastinal contours are unremarkable. IMPRESSION: Progressive patchy airspace opacities in the left base, may reflect worsening pneumonitis.
[2024-04-08 12:09] VITALS: O2SAT 95
[2024-04-08 12:15] VITALS: TEMP 98.3
[2024-04-08 12:16] VITALS: BP 90/56
--- NOTE | 2024-04-08 13:27 | P.DS ---
Admission Date: 04/06/24 Discharge Date: 04/08/24 Disposition: ROUTINE DISCHARGE Discharge Condition: FAIR Reason for Admission: Left lower lobe pneumonia right-sided lung mass Brief History of Present Illness: Diagnosis Acute LLL Pneumonia with neutropenia Neutropenic fever 3.7 cm right lung nodule Weakness and lethargy Lactic acidosis Hx PE Esophageal cancer Neutropenia Congestive heart failure HPI 04/06/24 Garland Mai is a 69 year old male with PMHX CHF, esophageal cancer (radiation/chemo), and anxiety who presents to the ED with chief complaint of fever at the clinic for chemotherapy. He reports starting a new medication for sleep and anxiety at which time it caused him to sleep for several days in a row. Evaluated in the ED with chest xray showing a right lung nodule and atypical pneumonia. Laboratory evaluation significant for lactic acid 4.3/3.3, WBC 2.4, UA negative for infectious process Chest xray reports "Enlargement of a 3.7 cm right lung nodule Development of mild to moderate linear opacities within the lung bases probably areas of subsegmental atelectasis. Pneumonitis, atypical pneumonia or other considerations." Garland will be admitted to hospitalist service for further evaluation and treatment of sepsis 2/ PNA. Hospital Course: Garland Mai is a pleasant 69 year old male with a past medical history significant for who was admitted to the [facility] on 04/06/24 for fever and weakness. Garland presented to the ED after being found to have a fever at the clinic for chemotherapy. He also reported starting new medication for sleep and anxiety and assumed that was the reason for his symptoms. Laboratory evaluation showed lactic acidosis with neutropenia. Chest x-ray showing atypical pneumonia or pneumonitis. CT chest showing left lower lobe opacities. Blood cultures negative, FLU and COVID also negative. He remained on room air during this admission and has been afebrile. He has tolerated IV antibiotics, p.o. diet, ambulating well. Dr. Raymond had a lengthy discussion concerning the condition of his lungs and needing a biopsy. Plan to follow-up with Dr. Raymond outpatient and continue taking Levaquin for left lower lobe pneumonia. On 04/08/24, Garland was seen on morning rounds and deemed medically stable for discharge. Garland was discharged with instructions to schedule follow-up appointments with PCP and Dr. Raymond. Garland was provided prescriptions for Levaquin and Ensure Enlive. Physical Exam General: AAO x3, NAD HEENT: Atraumatic, Normocephalic, PERRLA Neck: Supple, 2+ carotid pulse no bruit Respiratory: Clear to auscultation bilaterally, nonlabored breathing, left sided rhonchi, on room air Cardiovascular: , Normal pulses, Regular rate and rhythm, Normal S1 S2 Capillary refill: <2 Seconds Gastrointestinal: Normal bowel sounds, Soft on palpation, ND/NT Musculoskeletal: No clubbing, No edema Integumentary: No rashes Neurological: Normal speech, Normal tone Vital Signs/Physical Exam: Temp Pulse Resp BP Pulse Ox 98.3 F 84 17 90/56 L 95 04/08/24 12:00 04/08/24 12:00 04/08/24 12:00 04/08/24 12:00 04/08/24 12:00 Laboratory Data at Discharge: WBC 12.50 thou/uL (4.3-10.9) H 04/08/24 06:08 Hgb 10.3 g/dL (13.6-17.9) L 04/08/24 06:08 Hct 30.0 % (39.6-49.0) L 04/08/24 06:08 Plt Count 328 thou/uL (152-406) D 04/08/24 06:08 PT 23.4 SECONDS (9.4-12.5) H 04/06/24 10:30 INR 2.14 04/06/24 10:30 APTT 33.1 SECONDS (24.3-36.9) 04/06/24 10:30 Sodium 136 mEq/L (136-145) 04/08/24 06:08 Potassium 4.0 mEq/L (3.5-5.1) D 04/08/24 06:08 BUN 10 mg/dL (7-18) 04/08/24 06:08 Creatinine 0.65 mg/dL (0.70-1.30) L 04/08/24 06:08 Glucose 96 mg/dL (74-106) 04/08/24 06:08 Phosphorus 1.5 mg/dL (2.5-4.9) L* 04/08/24 06:08 Magnesium 1.9 mg/dL (1.6-2.4) 04/08/24 06:08 Total Bilirubin 0.7 mg/dL (0.2-1.0) 04/06/24 10:30 AST 16 U/L (15-37) 04/06/24 10:30 ALT < 14 U/L (16-61) L 04/06/24 10:30 Alkaline Phosphatase 97 U/L (45-117) 04/06/24 10:30 Home Medications: Docusate Liq [Colace Liquid*] 50 mg PO BID PRN 10/22/23 Ondansetron [Ondansetron Odt] 8 mg PO Q8HR PRN 10/22/23 Polyethylene Glycol 3350 [Miralax] 17 gm PO DAILY 10/22/23 Apixaban [Eliquis] 5 tab PO BID 04/06/24 Cetirizine HCl [Zyrtec] 10 mg PO DAILY PRN 04/06/24 Furosemide 20 mg PO DAILY 04/06/24 Trazodone [Desyrel*] 50 mg PO BEDTIME 04/06/24 Vit C/E/Zn/Coppr/Lutein/Zeaxan [Preservision Areds 2 Chew Tab] 1 each PO DAILY 04/06/24 Zolpidem Tartrate 5 mg PO 30 MIN BEFORE HS 04/06/24 dexAMETHasone [Dexamethasone] 4 mg PO SEECOM 04/06/24 Ensure Enlive 237 ml PO TID 7 Days #21 can 04/08/24 Levofloxacin [Levaquin] 250 mg PO BID 7 Days #42 tab 04/08/24 New Medications: Ensure Enlive 237 ml PO TID 7 Days #21 can Levofloxacin [Levaquin] 250 mg PO BID 7 Days #42 tab Physician Discharge Instructions: 1. Please call and schedule a follow-up appointment with your PCP in 3-5 days - Please follow-up with your PCP for medication refills/adjustments 2. Please call and schedule a follow-up appointment with Dr. Raymond in one week -lung biopsy, Dr. Raymond will give instructions prior to procedure -Left lower lobe pneumonia 3. Continue regular diet 4. activity restrictions, fall precaution 5. Return to the ED if symptoms worsen New medications Levaquin 750 mg twice daily x 7 days Automatic Serging Machine Operator recommendations 1.) Continue current diet order as tolerated + Ensure Enlive (237ml) PO TID 2.) Encourage small, frequent meals and adequate fluid intake [facility] health with [facility] and PT will be arranged outpatient Diet: Regular Activity: Fall precautions Followup: Memo Raymond MD [ACTIVE - CAN ADMIT] - 1 Week (call to schedule an appointment) Sudhir Rice MD [Primary Care Provider] - (follow up in 3-5 days)
--- NOTE | 2024-04-11 12:21 | EKG ---
Test Date: 2024-04-08 Test Time: 10:13:09 [employer]els Reclamation Engineer: SUSIE MEASUREMENT RESULTS: Intervals: Rate: 79 NE: 158 QRSD: 78 QT: 344 QTc: 394 [place]: P: 58 NE: 158 QRS: 78 T: 41 INTERPRETIVE STATEMENTS: Normal sinus rhythm Anterior infarct, age undetermined Abnormal ECG Compared to ECG 04/06/2024 10:14:22 Myocardial infarct finding now present Left ventricular hypertrophy no longer present Early repolarization no longer present Electronically Signed On 04-11-24 12:16:38 CRM MANAGER by Elliott Kwan
== END 2024-04-08 16:00 | disposition home or self-care (01) | DRG 193 ==
LOC: ER 09:24 → ERHOLD 13:04 → 4TH 14:04
PROVIDERS: ADMIT Internal Medicine; ATTEND Internal Medicine
DX: J18.9 Pneumonia, unspecified organism (principal); E43 Unspecified severe protein-calorie malnutrition; Z68.1 Body mass index [BMI] 19.9 or less, adult; C15.9 Malignant neoplasm of esophagus, unspecified; E87.20 Acidosis, unspecified; I50.9 Heart failure, unspecified; F41.9 Anxiety disorder, unspecified; D70.9 Neutropenia, unspecified; R50.81 Fever presenting with conditions classified elsewhere; F17.200 Nicotine dependence, unspecified, uncomplicated; R91.8 Other nonspecific abnormal finding of lung field; Z88.5 Allergy status to narcotic agent; Z11.52 Encounter for screening for COVID-19; Z79.01 Long term (current) use of anticoagulants; Z79.899 Other long term (current) drug therapy; Z86.711 Personal history of pulmonary embolism
CPT/HCPCS: 36415; 71045; 71250; 80048; 80053; 80202; 81001; 83605; 83735; 84100; 84439; 84443; 84484; 85025; 85610; 85730; 87040; 87804; 87811; 92610; 93005; 96361; 96365; 97161; 99285; J0696; J3475; J7030; J7040; J7050

== ENCOUNTER 2024-06-22 08:02 | Day surgery (SDC) | payer OTHER, BC ==
[2024-06-22 08:41] LABS: MPV 7.3 fL (7.6-11.3); Platelets 442 thou/uL (152-406)
[2024-06-22 08:45] LABS: PTT, Activated Partial Thromb 29.4 SECONDS (24.3-36.9); Protime INR 1.05
[2024-06-22] MEDS ORDERED: NALOXONE HCL 2 MG/2 ML VIAL ONE (09:06)
[2024-06-22] MEDS ORDERED: FLUMAZENIL 0.1 MG/ML (5 mL VIAL) IV ONE (09:06)
[2024-06-22] MEDS ORDERED: MIDAZOLAM HCL 2 MG/2 ML INJ ONE (09:06)
[2024-06-22] MEDS ORDERED: FENTANYL CITR 100 MCG/2 ML ONE (09:06)
[2024-06-22] MEDS ORDERED: NA CHLORIDE 0.9% 1,000 ML ONE (09:07)
[2024-06-22] MEDS: HYDROCODONE/APAP 7.5/325 MG TAB ONE (11:33)
--- NOTE | 2024-06-22 12:10 | RAD REPORT ---
EXAMINATION: ONE VIEW CHEST XR CLINICAL INDICATION: Male, 69 years old.,POST LUNG BX TECHNIQUE: Frontal chest projection is submitted. Examination is limited by patient positioning and t echnique. COMPARISON: 04/08/2024 FINDINGS: Patchy bilateral airspace opacities, progressive especially at the lung bases, more so on the right. Right apical pneumothorax, with pleural separation measuring 1.3 cm. Bilateral small pleural effusions especially on the left, also appear progressive. Right chest wall medication port in place. The heart is normal in size. Mediastinal contours are unremarkable. IMPRESSION: Right apical small pneumothorax. Patchy bilateral airspace opacities as above, could reflect combination of atelectasis and airspace d isease.
[2024-06-22] MEDS: DIAZEPAM 5 MG TABLET ONE (13:51)
--- NOTE | 2024-06-22 17:06 | RAD REPORT ---
EXAMINATION: ONE VIEW CHEST XR CLINICAL INDICATION: Male, 69 years old.,R/O PNEUMOTHORAX TECHNIQUE: Frontal chest projection is submitted. Examination is limited by patient positioning and t echnique. COMPARISON: 06/22/2024 at 11:15 AM. FINDINGS: Right apical pneumothorax appears slightly smaller, apical separation measuring 9-12 mm. Progressive patchy right basilar opacification, could reflect atelectasis. Left basilar pleural-parenchymal opacity is stable. The heart is normal in size. Mediastinal contours are unremarkable. IMPRESSION: Slightly smaller size of right apical pneumothorax.
--- NOTE | 2024-06-22 17:07 | RAD REPORT ---
EXAMINATION: Lung Biopsy Perc w/CT INDICATION: lung biopsy Pre-procedure diagnosis: Right lung mass Post-procedure diagnosis: Same as above. COMPLICATIONS: No immediate complications. PROCEDURE DETAILS: Consent: Informed consent for the procedure was obtained following discussion of the risks, benefits and alternatives with the patient. Time-out was performed prior to the procedure. Sedation: Moderate sedation (conscious sedation) Administered by: Nurse, or other independent traine d observer, with level of consciousness and vital signs continuously monitored. Total sedation administered: 0.5 mL Versed and 100 mcg Fentanyl. Total intra-service sedation time: 15 minutes. Biopsy: The area was prepped and draped in the usual sterile fashion. Initial scanning revealed progr essive mass in the upper aspect of the right lower lobe. Local anesthesia was administered. Under CT guidance, an 18 gauge biopsy needle was advanced to the target and biopsy was performed. Number of specimens/passes: 3 Preliminary assessment of sample adequacy: Adequate The biopsy needle was removed and a sterile dressing was applied. Post-biopsy imaging findings: Small pneumothorax noted on procedure conclusion. Estimated blood loss: Less than 10 mL. IMPRESSION: Technically successful CT-guided biopsy of the right lower lobe mass.
--- NOTE | 2024-06-22 17:40 | RAD REPORT ---
EXAM: Chest Single View HISTORY: POST LUNG BX, R/O PNEUMOTHORAX COMPARISON: Same-day chest radiograph FINDINGS: Small right-sided pneumothorax, silhouette has moved down to the right lung base. Some pleural fluid remains. No other new findings. IMPRESSION: Small right-sided pneumothorax which is overall similar in size when taking into account some redistr ibution of the air.
[2024-06-24 02:20] VITALS: BP 122/68; TEMP 97.9; O2SAT 95; BMI 18.8
== END 2024-06-22 18:36 | disposition home or self-care (01) ==
LOC: DS 08:02
PROVIDERS: ATTEND Internal Medicine Sleep Medicine
PROC: 0BBF3ZX Excision of Right Lower Lung Lobe, Percutaneous Approach, Diagnostic (ICD-10-PCS; principal; 2024-06-22)
DX: C34.31 Malignant neoplasm of lower lobe, right bronchus or lung (principal)
CPT/HCPCS: 36415; 71045; 77012; 85049; 85610; 85730; 88305; J2250; J2310; J3010; J7030